=== PATIENT | female | born 1995 | race Caucasian/White ===

== ENCOUNTER 2023-01-25 13:51 | Outpatient (CLI) | payer OTHER, SELFPAY ==
[2023-01-25 15:12] LABS: Basophils Percent Auto 0.3 % (0.2-1.2); Eosinophils Absolute Auto 0.1 K/mm3 (0-0.3); Eosinophils Percent Auto 2.2 % (0-4.4); Hematocrit 32.4 % (37.0-47.0); Hemoglobin 10.4 g/dL (12.0-15.0); Immature Granulocyte Absolute 0.03 K/mm3 (0.00-0.031); Immature Granulocyte Percent A 0.5 % (0-0.5); Lymphocytes Percent Auto 18.7 % (18.3-44.2); Mean Corpuscular HGB Conc 32.1 g/dl (32-36); Mean Corpuscular Hemoglobin 26.8 pg (26-34); Mean Corpuscular Volume 83.5 fl (80-100); Mean Platelet Volume 10.7 fl (7.4-10.4); Monocytes Absolute Auto 0.4 K/mm3 (0.1-0.6); Monocytes Percent Auto 5.8 % (2.6-8.5); Neutrophils Absolute Auto 4.7 K/mm3 (1.3-6.7); Neutrophils Percent Auto 72.5 % (45.5-73.1); Platelet Count Result 266 k/mm3 (150-375); Red Blood Count 3.88 M/mm3 (4.2-5.4); Red Cell Distribution Width 13.4 % (11.5-14.5); White Blood Count 6.4 K/mm3 (4.5-10.0)
[2023-01-25 15:22] LABS: Glucose 1 Hour PP 50gm Dose 138 mg/dL
[2023-01-25 16:04] LABS: HIV 1/2 Ab P24 Ag Result Negative (Negative)
[2023-01-25 16:42] LABS: Hepatitis B Surface Antigen Negative (Negative); Rubella IgG Antibody 3.6 IU/ML
[2023-01-25 17:44] LABS: Free T4 Free Thyroxine Reflex 0.69 ng/dL (0.78-2.19)
[2023-01-30 14:53] LABS: Rapid Plasma Reagin Non-Reactive (NonReactive)
== END 2023-01-25 13:52 | disposition home or self-care (01) ==
LOC: ANHLAB 13:54
PROVIDERS: Visit Provider Obstetrics & Gynecology
DX: Z34.90 Encounter for supervision of normal pregnancy, unspecified, unspecified trimester (principal); Z3A.00 Weeks of gestation of pregnancy not specified
CPT/HCPCS: 36415; 82947; 84439; 84443; 84702; 85025; 86592; 86644; 86703; 86747; 86762; 86787; 86850; 86900; 86901; 87086; 87340; G0432

== ENCOUNTER 2023-02-03 10:50 | Outpatient (CLI) | payer OTHER, SELFPAY ==
[2023-02-03 11:19] LABS: Glucose Fasting Gestational 78 mg/dL (>/=95)
[2023-02-03 12:49] LABS: Glucose 1 Hour Gest 193 mg/dL (>/=180)
[2023-02-03 14:26] LABS: Glucose 2 Hour Gest 147 mg/dL (>/= 155)
[2023-02-03 15:20] LABS: Glucose 3 Hour Gest 128 mg/dL (>/=140)
== END 2023-02-03 10:51 | disposition home or self-care (01) ==
PROVIDERS: Visit Provider Obstetrics & Gynecology
DX: R73.09 Other abnormal glucose (principal)
CPT/HCPCS: 36415; 82951; 82952

== ENCOUNTER 2023-03-05 05:31 | Inpatient (IN) | payer OTHER, SELFPAY ==
[2023-03-05] VITALS (8 sets, daily range): BP systolic 104–128; BP diastolic 70–82; PULSE 71–87; RESP 16–20; TEMP 36.5–36.9; O2SAT 96–99; BMI 28.6
--- NOTE | 2023-03-05 05:31 | LDADM ---
This patient, Bobby Suh, was admitted to Labor/Delivery/Recovery 105 on 03/05/23 at 05:31. Plans for labor, pain management and were discussed with patient. Patient/family oriented to hospital policies and general routines including ID bracelet, bed and alarms, visiting hours, pain management, procedures, bathroom and other care routines, personal items, smoking policy, room service/diet and guest tray routines, security routines, and visiting hours. Patient/Family are encouraged to report perceived risks to care and to ask questions if they do not understand what they are told or what they should do. See OBIX for further documentation.
[2023-03-05] MEDS: LACTATED RINGERS 1,000 ML 125 ML IV CONT (06:05)
[2023-03-05 06:07] LABS: Basophils Percent Auto 0.2 % (0.2-1.2); Eosinophils Percent Auto 0.4 % (0-4.4); Hematocrit 33.6 % (37.0-47.0); Immature Granulocyte Absolute 0.07 K/mm3 (0.00-0.031); Immature Granulocyte Percent A 0.8 % (0-0.5); Lymphocytes Absolute Auto 2.21 K/mm3 (0.9-3.2); Lymphocytes Percent Auto 24.5 % (18.3-44.2); Mean Corpuscular HGB Conc 32.7 g/dl (32-36); Mean Corpuscular Hemoglobin 26.1 pg (26-34); Mean Corpuscular Volume 79.8 fl (80-100); Mean Platelet Volume 10.8 fl (7.4-10.4); Monocytes Absolute Auto 0.6 K/mm3 (0.1-0.6); Monocytes Percent Auto 6.2 % (2.6-8.5); Neutrophils Absolute Auto 6.1 K/mm3 (1.3-6.7); Neutrophils Percent Auto 67.9 % (45.5-73.1); Platelet Count Result 254 k/mm3 (150-375); Red Blood Count 4.21 M/mm3 (4.2-5.4); Red Cell Distribution Width 14.2 % (11.5-14.5)
--- NOTE | 2023-03-05 06:31 | PM.IMHP ---
H&P: HPI History of Present Illness Date/Time: 03/05/23 06:31 Chief Complaint: contractions Narrative: Bobby is a 27yo @ 37.1wks who presented to L&D in active labor and was found to be 8-9cm. She reports good movements. No vb or lof. Her is complicated by: - History of mild preeclampsia at 37 weeks... on low-dose aspirin - Short interpregnancy interval Review of Systems Constitutional: Constitutional: Denies chills, Denies fever(s) and Denies headache(s) Eyes: Eyes: Denies change in vision ENT: Denies headache(s) Cardiovascular: Cardiovascular: Denies chest pain and Denies dyspnea Respiratory: Respiratory: Denies dyspnea Genitourinary: Genitourinary: Denies abnormal vaginal bleeding and Denies vaginal discharge Neurologic: Denies headache(s) Psychiatric: Psychiatric: Denies anxiety and Denies depression REPLACED BY [facility] Past Medical History Medical History Graves disease Surgical History Surgical History H/O thyroidectomy Family History Family History Father Heart disease Acute myocardial infarction Social History Social History Smoking status: Never smoker Alcohol intake: former Substance use: never Do You Feel Safe in your Home?: Yes Lack of Transportation: No Lack of Food: Never True Current Housing: I Have Housing Concerned About Future Housing: No Difficulty Paying Gas/Electric Bills: No Difficulty Paying for Meds: No Currently Unemployed: No Education: High School Diploma/GED Difficulty w/ Childcare or Family Care: No Living arrangements: with family Occupation/Education: occupation Gender identity (if verbalized by the patient): Female Sexual Orientation (if Verbalized by the Patient): Straight or Heterosexual Spiritual care concerns: No Meds Home Medications and Allergies Home Medications Medication Instructions Recorded Confirmed Type vits no.126-ferrous fum 1 tablet PO DAILY 11/02/22 03/05/23 History 28 mg iron-folic acid 800 mcg tablet (Classic ) levothyroxine 100 mcg capsule 100 mcg PO DAILY #30 caps 01/31/23 03/05/23 Rx Allergies Allergy/AdvReac Type Severity Reaction Status Date / Time amoxicillin [From Augmentin] Allergy Rash Verified 03/05/23 06:16 clavulanic acid Allergy Rash Verified 03/05/23 06:16 [From Augmentin] Vital Signs Vital Signs - 24 hr 03/05/23 05:43 03/05/23 06:10 03/05/23 06:17 Temperature 98.1 F 98.1 F Pulse Rate 81 Respiratory Rate 16 16 Blood Pressure 128/82 Oxygen Delivery Room Air Exam Const: General: cooperative, no acute distress and obese Nutritional Appearance: obese Orientation/consciousness: patient oriented x3 Resp: Effort & Inspection: normal respiratory effort Cardio: Rate: regular rate GI: GI Palp: No abdominal tenderness : Other: FHT's: 140's/ mod oli/ + accels/ no decels - cat 1 TOCO: ctxs q2-3min Cervix: 8-9/90/1 Membranes: intact Presentation: cephalic Skin: General skin exam: normal color Neuro: General: patient oriented x3 Extrem: General: normal to inspection Psych: Appearance: grossly normal Affect: normal affect Attitude: cooperative H&P: Results Labs Labs: Short CBC 03/05/23 Range/Units 06:02 WBC 9.0 (4.5-10.0) K/mm3 Hgb 11.0 L (12.0-15.0) g/dL Hct 33.6 L (37.0-47.0) % Plt Count 254 (150-375) k/mm3 Assessment and Plan Assessment and plan (1) Active labor: Status: Acute Plan - admitted in active labor - plan for - continuous monitoring; currently reassuring - GBS neg
--- NOTE | 2023-03-05 06:36 | WPDHPUPDATE1 ---
History and Physical Update Update Date/Time: 03/05/23 06:36 History and Physical has been reviewed, including an updated exam of the patient. There are NO changes in the patient's condition. Risks, benefits, and alternatives have been discussed and questions answered. Patient agrees to proceed with procedure.
[2023-03-05] MEDS: OXYTOCIN 30 UNITS/NS 500 ML 30 UNITS/500 ML BAG 999 UNITS IV CONT (07:14)
--- NOTE | 2023-03-05 07:23 | PM.OBPRVD ---
OB - Vaginal Delivery Note Procedure Delivery date: 03/05/23 Delivery augmentation: Rupture of Membranes Delivery monitor: External FHT and External Uterine Route of delivery: Episiotomy description: None Laceration Description: None Quantitative Blood Loss (ml): 150 Anesthesia type: None Disposition: Floor Complications: No immediate complications [place] Baby Date of : 03/05/23 Time of : 07:12 Weeks of gestation at delivery: 37 (.1) gender: Female Weight (pounds): 4 Weight (ounces): 14 presentation: vertex Placenta delivery description: Expressed Cord Vessel Description: 3 Vessels, Nuchal Cord, Loose and Delayed Cord Clamping score one minute: 8 score five minutes: 9 Narrative: JaedynPresented to labor and delivery at 8-9 cm dilated. She declined epidural. artificial rupture membranes was performed with clear fluid noted and she progressed to complete dilation. She pushed for approximately 15 minutes with good maternal effort. She delivered the head over intact perineum. Nuchal cord was noted but loose and delivered through. She easily delivered the infant's shoulders and body without complication. The infant was immediately placed skin to skin and was stimulated and cry was heard. Delayed cord clamping was performed. The umbilical cord was doubly clamped and cut. A segment of the cord was collected for cord gases. The remaining cord blood was collected for typing. With Pitocin running and gentle downward traction on the cord, the placenta delivered without complications. Bimanual massage was performed and good uterine tone with minimal bleeding was noted. She was examined and no lacerations were identified. Her uterus remained firm with minimal bleeding. Sponge, lap, instrument, and needle counts were correct at the end the procedure. Mom and baby were left bonding in the birthing suite in stable condition. [facility] Delivery Billing Delivery Delivery: Delivery Charge
--- NOTE | 2023-03-05 07:32 | PM.OBDSVD ---
DS: Admitting Diagnosis Discharge Date 03/06/23 Admitting Diagnosis Active labor at term DS: Discharge Diagnosis Discharge Diagnosis (1) Normal vaginal delivery of second : Code(s): O80 - Encounter for full-term uncomplicated delivery Status: Acute OB - DS: Summary OB Procedures : Ultrasound OB Procedures Intrapartum: Spontaneous Vag Delivery OB Procedures: : Rubella lg Peripartum Data Infant Delivery Method: Natural Vaginal Laceration Description: None Episiotomy description: None complications: none [place] 1: Gender: Female Status at Discharge Functional status at discharge: independent ambulation Overall status at discharge: patient is back to baseline Time Spent with Patient Time attestation: Total time spent providing and/or coordinating discharge services: Time spent: Less than 30 minutes Exam Const: General: cooperative, healthy appearing, comfortable and no acute distress Orientation/consciousness: patient oriented x3 Resp: Effort & Inspection: normal respiratory effort Auscultation: clear to auscultation bilaterally Cardio: Rate: regular rate GI: Inspection: non-distended GI Palp: No abdominal tenderness and Yes Soft to palpation Auscultation: normal bowel sounds : Other: fundus firm Skin: General skin exam: normal color Neuro: General: patient oriented x3 Extrem: General: normal to inspection Psych: Appearance: grossly normal Affect: normal affect Attitude: cooperative DS: Data Data Completed and Pending Labs on day of discharge: Labs from last 24 hours 03/05/23 06:02 WBC 9.0 RBC 4.21 Hgb 11.0 L Hct 33.6 L MCV 79.8 L MCH 26.1 MCHC 32.7 RDW 14.2 Plt Count 254 MPV 10.8 H Immature Gran % (Auto) 0.8 H Neut % (Auto) 67.9 Lymph % (Auto) 24.5 [place] % (Auto) 6.2 Eos % (Auto) 0.4 Baso % (Auto) 0.2 Lymph # (Auto) 2.21 [place] # (Auto) 0.6 Eos # (Auto) 0.0 Baso # (Auto) 0.0 Abs Immat Gran (auto) 0.07 H Absolute Neuts (auto) 6.1 Absolute Nucleated RBC 0.0 Nucleated RBC % 0.0 RPR Pending Discharge Plan Discharge Attending physician on discharge: Nohemi Garcia Discharging Clinician: Nohemi Garcia Anticipated Discharge Date/Time: 03/07/23 10:00 Patient Disposition: Home, Self-Care Activity: may shower and pelvic rest Diet: regular Discharge Instructions: Education: Mom and Baby Guide Given to: Mother Follow-Up: Call your delivering provider's office for an appointment to be seen in: 4 Weeks Mom and baby should come to the [facility] for the follow-up appointment. Appointment Date/Time: March 07, 2023 at 9:00 am What to expect at your follow-up visit: Blood Pressure Check Physical Assessment Call [phone] if you are unable to keep your appointment time. BREAST CARE: * Wear a snug supportive bra. * For engorgement discomfort: Bottle Feeding: * May apply ice packs PERINEAL CARE: * Until bleeding stops, use your ramu bottle after urinating * Change your pad frequently throughout the day * You may take sitz baths several times a day (fill your bathtub with warm water and soak for 20 minutes.) Do NOT bathe in the water * No tub baths until seen by your physician - You may shower ACTIVITY: * Rest as much as possible. * Do not exercise or lift anything heavier than your baby (such as laundry or other children.) * Avoid stairs or driving as much as possible. * Do not put anything into the vagina. No douching, tampons, or sexual activity until seen by physician. NOTIFY PHYSICIAN IF YOU HAVE ANY QUESTIONS OR IF ANY OF THE FOLLOWING SYMPTOMS OCCUR: * If your vaginal bleeding becomes foul smelling. * If your vaginal bleeding becomes more heavy than a period or if your bleeding changes from pink to bright red. However, you may pass an occasional walnut-sized clot once or twice for the first week . * If you experience a s
[2023-03-05] MEDS: OXYTOCIN 30 UNITS/NS 500 ML 30 UNITS/500 ML BAG 125 UNITS IV CONT (07:50)
[2023-03-05] MEDS: BENZOCAINE 20% AER SPR (*SP) 56 GM CAN 1 SPRAY TOPICAL (08:30)
[2023-03-05] MEDS: ACETAMINOPHEN 325 MG TABLET 650 MG PO (08:30)
[2023-03-05] MEDS: WITCH HAZEL 40 PADS 1 PAD TOPICAL (09:18)
--- NOTE | 2023-03-05 09:30 | OBPPTRN ---
Patient transferred to post room # 291 via wheelchair. Support person present. Oriented to unit, room, information board, rooming in, admission packet and security measures. Patient verbalizes understanding.
[2023-03-05] MEDS: IBUPROFEN 600 MG TABLET PO (12:06)
[2023-03-05] MEDS: TETANUS,DIPHTHERIA,AC PERTUSSIS ADULT (0.5 ML) BOOSTRIX IM (12:07)
[2023-03-06 00:20] VITALS: BP 106/70; PULSE 65; RESP 16; TEMP 36.4; O2SAT 100
[2023-03-06] MEDS: IBUPROFEN 600 MG TABLET PO ×2 (01:27→09:23)
[2023-03-06 04:24] LABS: Hematocrit 30.8 % (37.0-47.0); Hemoglobin 9.8 g/dL (12.0-15.0)
[2023-03-06 04:36] VITALS: BP 110/74; PULSE 71; RESP 18; TEMP 36.9; O2SAT 98
[2023-03-06] MEDS: LEVOTHYROXINE SODIUM 100 MCG TABLET PO (06:59)
[2023-03-06 07:50] VITALS: BP 116/84; PULSE 65; RESP 16; TEMP 36.7; O2SAT 99
--- NOTE | 2023-03-06 09:04 | PM.OBDSVD ---
DS: Admitting Diagnosis Discharge Date 03/06/23 Admitting Diagnosis intrauterine at term DS: Discharge Diagnosis Discharge Diagnosis (1) Normal vaginal delivery of second : Code(s): O80 - Encounter for full-term uncomplicated delivery Status: Acute OB - DS: Summary OB Procedures : None OB Procedures Intrapartum: Spontaneous Vag Delivery OB Procedures: : None Peripartum Data Laceration Description: None Episiotomy description: None Status at Discharge Functional status at discharge: independent ambulation Overall status at discharge: patient is back to baseline Time Spent with Patient Time attestation: Total time spent providing and/or coordinating discharge services: Time spent: Less than 30 minutes Exam Const: General: comfortable and no acute distress Resp: Effort & Inspection: normal respiratory effort Auscultation: clear to auscultation bilaterally Cardio: Rate: regular rate GI: GI Palp: Yes Soft to palpation Auscultation: normal bowel sounds Other: Fundus firm below umbilicus Psych: Appearance: grossly normal Mental Status: mental status grossly normal Affect: normal affect DS: Data Data Completed and Pending Pending studies at discharge: Pending at discharge 03/05/23 08:33 Surgical [PTH] Routine Labs on day of discharge: Labs from last 24 hours 03/06/23 04:11 Hgb 9.8 L Hct 30.8 L Discharge Plan Discharge Attending physician on discharge: Nohemi Garcia Discharging Clinician: Nohemi Garcia Anticipated Discharge Date/Time: 03/07/23 10:00 Patient Disposition: Home, Self-Care Activity: may shower and pelvic rest Diet: regular Patient Instructions: Vaginal Delivery (DC) Stand Alone Forms: General Discharge Information Follow-up/Referrals: Nohemi Garcia MD [Physician] - 4 Weeks Discharge Medications: New ibuprofen 800 mg tablet 800 mg PO TID Qty: 50 0RF acetaminophen 500 mg tablet 1,000 mg PO TID Qty: 60 0RF docusate sodium [Colace] 100 mg capsule 100 mg PO BID Qty: 100 0RF Continued Classic 28 mg iron- 800 mcg tablet 1 tablet PO DAILY levothyroxine 100 mcg capsule 100 mcg PO DAILY Qty: 30 0RF Date of admission: 03/05/23 05:31 Primary Care Provider: PHYSICIAN,SURGICAL SALES REPRESENTATIVE Admitting Provider: Emile Carrasco Attending physician on admission: Emile Carrasco Condition: Stable
[2023-03-06] MEDS: MEASLES,MUMPS,RUBELLA VACCINE 0.5 ML VIAL SUB-Q (11:20)
[2023-03-06] MEDS: POLYSACCHARIDE IRON COMPLEX 150 MG CAPSULE PO (11:22)
[2023-03-06] MEDS: DOCUSATE SODIUM 100 MG CAPSULE PO (11:22)
[2023-03-06 13:03] LABS: Rapid Plasma Reagin Non-Reactive (NonReactive)
[2023-03-07 09:22] VITALS: BP 125/80; PULSE 78; RESP 18; TEMP 36.9; O2SAT 100
== END 2023-03-06 12:20 | disposition home or self-care (01) | DRG 807 ==
LOC: ANHLDR 07:31 → ANHOB2 03-06 11:31 → ANHLDR 03-08 07:46 → ANHOB2 03-08 07:46
PROVIDERS: Admitting Provider Obstetrics & Gynecology; Visit Provider Student in an Organized Health Care Education/Training Program
DX: O14.04 Mild to moderate pre-eclampsia, complicating childbirth (principal); Z37.0 Single live birth; O69.81X0 Labor and delivery complicated by cord around neck, without compression, not applicable or unspecified; O99.284 Endocrine, nutritional and metabolic diseases complicating childbirth; E05.00 Thyrotoxicosis with diffuse goiter without thyrotoxic crisis or storm; Z23 Encounter for immunization; Z3A.37 37 weeks gestation of pregnancy; Z90.89 Acquired absence of other organs
CPT/HCPCS: 36415; 85014; 85018; 85025; 86592; 86850; 86900; 86901; 88307; 90471; 90686; 90710; 90715; A9270; G0008; J2590; J2795; J7120